=== PATIENT | female | born 1950 | race Asian ===

== ENCOUNTER 2024-01-01 09:19 | Day surgery (SDC) | payer OTHER, BC ==
[2023-12-28 10:13] VITALS: BMI 32.3
[2024-01-01 12:15] VITALS: RESP 18; TEMP 98
[2024-01-01 13:06] VITALS: BP 112/66; PULSE 67
== END 2024-01-01 12:55 | disposition home or self-care (01) ==
LOC: FASU-ENDO 09:19
PROVIDERS: ATTEND Internal Medicine Gastroenterology
PROC: 0DJD8ZZ Inspection of Lower Intestinal Tract, Via Natural or Artificial Opening Endoscopic (ICD-10-PCS; principal; 2024-01-01 11:56)
DX: Z12.11 Encounter for screening for malignant neoplasm of colon (principal); K64.0 First degree hemorrhoids